=== PATIENT | male | born 1960 | race Hispanic/Latino ===

== ENCOUNTER 2021-07-20 19:02 | Inpatient (IN) | payer MEDICARE, SELFPAY ==
[~2021-07-20 19:02] MED LIST: Magnevist 469MG/ML 20 ML VIAL ONE
[2021-07-20 20:06] VITALS: BMI 16.8
[2021-07-20] MEDS ORDERED: Acetaminophen 325 MG TAB PO PRN (21:41)
[2021-07-20] MEDS ORDERED: Potassium Chloride 20 MEQ TAB PO SCH (22:00)
[2021-07-20] MEDS: Sodium Chloride 0.9% 1,000 ML IV SCH (22:36)
[2021-07-20] MEDS: Nicotine 21 MG PATCH TOP SCH (23:06)
[2021-07-20] MEDS: Thiamine HCl 200 MG/2 ML VIAL SLOW IVP SCH (23:06)
[2021-07-20 23:23] LABS: Magnesium 1.3 mg/dL (1.6-2.6)
[2021-07-20 23:30] LABS: Troponin I 0.016 ng/mL (< 0.028)
[2021-07-20] MEDS: Lorazepam 0.5 MG TAB PO PRN (23:55)
[2021-07-21] MEDS ORDERED: Magnesium 2 GM/50 ML(in water) 2 GM in Premix Bag 1 BAG IVPB SCH (02:00)
[2021-07-21] MEDS ORDERED: Ziprasidone 20 MG VIAL IM SCH (03:00)
[2021-07-21] MEDS ORDERED: Sterile Water 10 ML ONE (03:06)
[2021-07-21] MEDS ORDERED: Melatonin 3 MG TAB PO SCH (05:00)
[2021-07-21 05:23] LABS: #Eosinphils 0.1 10x3/uL (0.0-0.5); #Monocytes 0.6 10x3/uL (0.0-1.1); #Neutrophils 3.4 10x3/uL (1.5-8.4); %Basophils 0.7 % (0.0-2.0); %Eosinophils 1.7 % (0.0-6.0); %Lymphocytes 28.9 % (18.0-47.0); %Monocytes 9.7 % (0.0-10.0); %Neutrophils 58.7 % (40.0-75.0); Hemoglobin 13.5 g/dL (13.5-17.5); Mean Corpuscular Hemoglobin 34.6 pg (27.0-33.0); Mean Corpuscular Volume 96.2 fl (81.2-95.1); Mean Platelet Volume 10.9 fl (7.4-10.4); Platelet Count 154 10x3/uL (150-450); White Blood Cell (WBC) Count 5.8 10x3/uL (3.5-10.5)
[2021-07-21 05:25] LABS: Anion Gap 14 mmol/L (10-20); BUN (Urea Nitrogen) 7 mg/dL (8.4-25.7); Calc. Creatinine Clearance 86 mL/min (70-130); Calcium 8.8 mg/dL (7.8-10.44); Carbon Dioxide 25 mmol/L (22-29); Chloride 100 mmol/L (98-107); Glucose 87 mg/dL (70-105); Magnesium 2.9 mg/dL (1.6-2.6); Potassium 3.9 mmol/L (3.5-5.1); Sodium 135 mmol/L (136-145)
[2021-07-21 05:42] LABS: Syphilis Antibody Nonreactive (Nonreactive); Syphilis Antibody Index 0.06 S/CO (<1.00 Non-Reactive)
[2021-07-21 05:43] LABS: Hep B Surf Ag Non-Reactive S/CO (NonReactive)
[2021-07-21 05:46] LABS: HBSAg Index 0.17 S/CO (0-0.99)
[2021-07-21] MEDS ORDERED: Lorazepam 2 MG/ML VIAL SLOW IVP SCH (06:00)
[2021-07-21] MEDS ORDERED: Multivitamin W/ Minerals 1 TAB PO SCH (09:00)
[2021-07-21] MEDS ORDERED: Folic Acid 1 MG TAB PO SCH (09:00)
[2021-07-21 13:24] LABS: Hep C IgG Ab Non-Reactive (NonReactive); Hep C Index 0.15 S/CO (0-0.79)
[2021-07-21] MEDS: Sodium Chloride 0.9% 1,000 ML IV SCH (13:24)
[2021-07-21] MEDS: Enoxaparin Sodium 40 MG/0.4 ML SYRINGE SC SCH (13:24)
[2021-07-21 14:49] LABS: Acetaminophen Less than 10.0 mcg/mL (10.0-30.0); Alcohol Less than 10 mg/dL (Less than 10); Salicylate Less than 8.0 mg/dL (15.0-30.0)
[2021-07-21 16:51] LABS: SARS-CoV-2 PCR by NAA Not Detected (NotDetected)
[2021-07-21] MEDS: Carvedilol 3.125 MG TAB PO SCH (18:27)
[2021-07-21] MEDS: Nicotine 21 MG PATCH TOP SCH (18:27)
[2021-07-21] MEDS: Thiamine HCl 200 MG/2 ML VIAL SLOW IVP SCH (22:21)
[2021-07-21] MEDS: Lorazepam 0.5 MG TAB PO PRN (22:27)
[2021-07-22] MEDS ORDERED: Ondansetron ODT 4 MG TAB PO PRN (02:21)
[2021-07-22] MEDS ORDERED: Lorazepam 1 MG TAB PO PRN (02:21)
[2021-07-22] MEDS ORDERED: Lorazepam 2 MG/ML VIAL IM PRN (02:21)
[2021-07-22] MEDS ORDERED: Thiamine HCl 200 MG/2 ML VIAL SLOW IVP SCH (02:30)
[2021-07-22] MEDS ORDERED: Electrolyte Replacement Protocol 1 EACH FS SCH (02:30)
[2021-07-22] MEDS ORDERED: Lorazepam 2 MG/ML VIAL SLOW IVP SCH ×2 (02:45→05:30)
[2021-07-22] MEDS: Lorazepam 1 MG TAB PO SCH ×4 (02:51→21:43)
[2021-07-22 05:21] LABS: #Basophils 0.1 10x3/uL (0.0-0.2); #Eosinphils 0.1 10x3/uL (0.0-0.5); #Monocytes 0.5 10x3/uL (0.0-1.1); #Neutrophils 2.5 10x3/uL (1.5-8.4); %Basophils 1.3 % (0.0-2.0); %Eosinophils 2.4 % (0.0-6.0); %Neutrophils 53.9 % (40.0-75.0); Hemoglobin 12.7 g/dL (13.5-17.5); Mean Corpuscular HGB CONC 36.5 g/dL (32.0-36.0); Mean Corpuscular Hemoglobin 35.5 pg (27.0-33.0); Mean Corpuscular Volume 97.2 fl (81.2-95.1); Mean Platelet Volume 10.5 fl (7.4-10.4); Platelet Count 150 10x3/uL (150-450); RBC Distribution Width 12.8 % (11.5-14.5); Red Blood Cell (RBC) Count 3.58 10x6/uL (4.32-5.72); White Blood Cell (WBC) Count 4.6 10x3/uL (3.5-10.5)
[2021-07-22 05:29] LABS: ALT (SGPT) 86 U/L (8-55); AST (SGOT) 117 U/L (5-34); Albumin 3.4 g/dL (3.5-5.0); Alkaline Phosphatase 83 U/L (40-110); Anion Gap 14 mmol/L (10-20); BUN (Urea Nitrogen) 9 mg/dL (8.4-25.7); Bilirubin, Total 1.1 mg/dL (0.2-1.2); Calc. Creatinine Clearance 85 mL/min (70-130); Calcium 8.5 mg/dL (7.8-10.44); Carbon Dioxide 25 mmol/L (22-29); Chloride 98 mmol/L (98-107); Globulin 2.6 g/dL (2.4-3.5); Glucose 101 mg/dL (70-105); Potassium 3.9 mmol/L (3.5-5.1); Sodium 133 mmol/L (136-145)
[2021-07-22 05:48] LABS: HIV (1/2) Antibody/Antigen Non-Reactive (NonReactive); HIV 1/2 INDEX 0.06 S/CO (<1.00)
[2021-07-22] MEDS: Enoxaparin Sodium 40 MG/0.4 ML SYRINGE SC SCH (09:29)
[2021-07-22] MEDS: Multivit, Therapeutic 1 TAB PO SCH (09:30)
[2021-07-22] MEDS: Carvedilol 3.125 MG TAB PO SCH ×2 (09:30→17:26)
[2021-07-22] MEDS: Folic Acid 1 MG TAB PO SCH (09:30)
[2021-07-22] MEDS: Aspirin 81 mg Enteric Coated Tablet PO SCH (09:30)
[2021-07-22] MEDS: Nicotine 21 MG PATCH TOP SCH (21:43)
[2021-07-22] MEDS ORDERED: Haloperidol Lactate 5 MG/ML VIAL IM SCH (23:00)
[2021-07-22] MEDS: Thiamine HCl 200 MG/2 ML VIAL SLOW IVP SCH (23:13)
[2021-07-23] MEDS ORDERED: Lorazepam 1 MG TAB PO PRN (02:21)
[2021-07-23] MEDS: Lorazepam 1 MG TAB PO SCH ×4 (03:09→21:02)
[2021-07-23] MEDS: Multivit, Therapeutic 1 TAB PO SCH (09:40)
[2021-07-23] MEDS: Aspirin 81 mg Enteric Coated Tablet PO SCH (09:40)
[2021-07-23] MEDS: Folic Acid 1 MG TAB PO SCH (09:40)
[2021-07-23] MEDS: Enoxaparin Sodium 40 MG/0.4 ML SYRINGE SC SCH (09:40)
[2021-07-23] MEDS: Carvedilol 3.125 MG TAB PO SCH ×2 (09:40→17:10)
[2021-07-24] MEDS: Thiamine HCl 200 MG/2 ML VIAL SLOW IVP SCH ×2 (00:05→22:53)
[2021-07-24] MEDS: Nicotine 21 MG PATCH TOP SCH ×2 (00:05→18:38)
[2021-07-24] MEDS ORDERED: Lorazepam 1 MG TAB PO PRN (02:21)
[2021-07-24] MEDS: Lorazepam 0.5 MG TAB PO SCH ×4 (02:36→20:11)
[2021-07-24] MEDS: Aspirin 81 mg Enteric Coated Tablet PO SCH (09:23)
[2021-07-24] MEDS: Multivit, Therapeutic 1 TAB PO SCH (09:23)
[2021-07-24] MEDS: Carvedilol 3.125 MG TAB PO SCH ×2 (09:23→17:51)
[2021-07-24] MEDS: Folic Acid 1 MG TAB PO SCH (09:23)
[2021-07-24] MEDS: Enoxaparin Sodium 40 MG/0.4 ML SYRINGE SC SCH (09:23)
[2021-07-25] MEDS ORDERED: Lorazepam 0.5 MG TAB PO PRN (02:21)
[2021-07-25] MEDS: Enoxaparin Sodium 40 MG/0.4 ML SYRINGE SC SCH (08:53)
[2021-07-25] MEDS: Aspirin 81 mg Enteric Coated Tablet PO SCH (08:54)
[2021-07-25] MEDS: Carvedilol 3.125 MG TAB PO SCH ×2 (08:54→16:51)
[2021-07-25] MEDS: Multivit, Therapeutic 1 TAB PO SCH (08:54)
[2021-07-25] MEDS: Folic Acid 1 MG TAB PO SCH (08:54)
[2021-07-25] MEDS: chlordiazePOXIDE HCl 5 MG CAP PO SCH ×3 (08:54→21:21)
[2021-07-25] MEDS: Nicotine 21 MG PATCH TOP SCH (21:21)
[2021-07-25] MEDS ORDERED: Thiamine 100 MG TAB PO SCH (23:00)
[2021-07-26] MEDS: Aspirin 81 mg Enteric Coated Tablet PO SCH (09:36)
[2021-07-26] MEDS: Folic Acid 1 MG TAB PO SCH (09:36)
[2021-07-26] MEDS: Enoxaparin Sodium 40 MG/0.4 ML SYRINGE SC SCH (09:36)
[2021-07-26] MEDS: Carvedilol 3.125 MG TAB PO SCH ×2 (09:36→16:40)
[2021-07-26] MEDS: Multivit, Therapeutic 1 TAB PO SCH (09:36)
[2021-07-26] MEDS: chlordiazePOXIDE HCl 5 MG CAP PO SCH ×3 (09:36→20:06)
[2021-07-26 16:56] VITALS: BP 117/65; TEMP 98
[2021-07-26] MEDS: Nicotine 21 MG PATCH TOP SCH (20:06)
== END 2021-07-26 20:20 | DRG 70 ==
LOC: INTOOBSV 19:02 → OBSVTOIN 19:02 → CSHTELE 19:02
PROVIDERS: ADMIT Internal Medicine; ATTEND Internal Medicine
DX: G93.40 Encephalopathy, unspecified (principal); E43 Unspecified severe protein-calorie malnutrition; Z68.1 Body mass index [BMI] 19.9 or less, adult; F17.210 Nicotine dependence, cigarettes, uncomplicated; E87.6 Hypokalemia; R74.8 Abnormal levels of other serum enzymes; D75.89 Other specified diseases of blood and blood-forming organs; I51.7 Cardiomegaly; Z20.822 Contact with and (suspected) exposure to COVID-19; I10 Essential (primary) hypertension
CPT/HCPCS: 36415; 70553; 76705; 80048; 80053; 80307; 82607; 82746; 83735; 84484; 85025; 85652; 86780; 86803; 87340; 87389; 93005; 93010; 93306; 96365; 96372; 96374; 96375; A9579; G0378; J1630; J1650; J2060; J3411; J3475; J3486; J7050; U0003; U0005